=== PATIENT | male | born 1970 | race Caucasian/White ===

== ENCOUNTER 2017-09-03 07:26 | Emergency (ER) | payer OTHER ==
[2017-09-03 07:33] VITALS: BP 119/78; PULSE 109; TEMP 98.3; BMI 24.2
[2017-09-03] MEDS ORDERED: ACETAMINOPHEN 325 MG TABLET (FP) PO ONE (07:49)
[2017-09-03] MEDS ORDERED: predniSONE 20 MG TABLET (UD) PO ONE (07:49)
[2017-09-03] MEDS ORDERED: ACETAMINOPHEN 325 MG TABLET (FP) ONE (07:52)
[2017-09-03] MEDS ORDERED: ALBUTEROL SO4 2.5/IPRATROPIUM 0.5 INH SOL 3 ML VIAL.NEB. NEB ONE (07:52)
[2017-09-03] MEDS ORDERED: predniSONE 20 MG TABLET (UD) ONE (07:52)
--- NOTE | 2017-09-03 07:54 | PDOC ---
History of Present Illness - General Chief Complaint: Cold Symptoms Stated Complaint: cough,sob Time Seen by Provider: 09/03/17 07:29 History Source: Patient Exam Limitations: No Limitations - History of Present Illness Initial Comments: 46 yo M history asthma, recently treated with levaquin for bronchitis, states he has not been improving. 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 He states that he was not feeling well afterwards, and his asthma has been progressively worsening ever since. He saw his PMD, had a negative CXR, and was started on levaquin for bronchitis. He has been using his inhaler for cough and SOB without relief. No fever, chills. He c/o diffuse headache when he coughs. Past History - Past Medical History Allergies/Adverse Reactions: Allergies Allergy/AdvReac Type Severity Reaction Status Date / Time aspirin Allergy Verified 09/03/17 07:28 Penicillins Allergy Verified 07/02/14 15:45 Home Medications: Ambulatory Orders NK [No Known Home Medication] 09/03/17 Hypercholesterolemia: Yes - Suicide/Smoking/Psychosocial Hx Smoking History: Never smoked Hx Alcohol Use: No Drug/Substance Use Hx: No Substance Use Type: Alcohol Review of Systems - Review of Systems Able to Perform ROS?: Yes Comments:: GENERAL/CONSTITUTIONAL: No fever or chills. No weakness. HEAD, EYES, EARS, NOSE AND THROAT: No change in vision. No ear pain or discharge. No sore throat. CARDIOVASCULAR: No chest pain. +Shortness of breath. RESPIRATORY: +Cough. No wheezing or hemoptysis. GASTROINTESTINAL: No nausea, vomiting, diarrhea or constipation. GENITOURINARY: No dysuria, frequency, or change in urination. MUSCULOSKELETAL: No joint or muscle swelling or pain. No neck or back pain. SKIN: No rash NEUROLOGIC: No vertigo, loss of consciousness, or change in strength/sensation. +Headache. ENDOCRINE: No increased thirst. No abnormal weight change. HEMATOLOGIC/LYMPHATIC: No anemia, easy bleeding, or history of blood clots. ALLERGIC/IMMUNOLOGIC: No hives or skin allergy. *Physical Exam - Vital Signs Last Vital Signs Temp Pulse Resp BP Pulse Ox 98.3 F 109 H 20 119/78 96 09/03/17 07:27 09/03/17 07:27 09/03/17 07:27 09/03/17 07:27 09/03/17 07:27 - Physical Exam Comments: GENERAL: Awake, alert, and fully oriented, in no acute distress HEAD: No signs of trauma EYES: PERRLA, EOMI, sclera anicteric, conjunctiva clear ENT: Auricles normal inspection, hearing grossly normal, nares patent, oropharynx erythematous without exudates. Moist mucosa. TMs wnl B/L. NECK: Normal ROM, supple, no lymphadenopathy, JVD, or masses LUNGS: Mildly dec air entry B/L. Breath sounds equal, clear to auscultation. No wheezes, and no crackles HEART: Regular rate and rhythm, normal S1 and S2, no murmurs, rubs or gallops ABDOMEN: Soft, nontender, normoactive bowel sounds. No guarding, no rebound. No masses EXTREMITIES: Normal range of motion, no edema. No clubbing or cyanosis. No cords , erythema, or tenderness NEUROLOGICAL: Cranial nerves II through XII grossly intact. Normal speech, normal gait SKIN: Warm, Dry, normal turgor, no rashes or lesions noted. Medical Decision Making - Medical Decision Making 09/03/17 09:07 Cough has significantly improved. Patient reports improvement in symptoms. Stable for DC home. *DC/Admit/Observation/Transfer Diagnosis at time of Disposition: Viral upper respiratory infection Asthma with acute exacerbation Qualifiers: Asthma severity: unspecified severity Asthma persistence: unspecified Qualified Code(s): J45.901 - Unspecified asthma with (acute) exacerbation - Discharge Dispostion Disposition: HOME Condition at time of disposition: Improved Admit: No - Referrals Referrals: Evelin Horn [Primary Care Provider] -
[2017-09-03] MEDS: ALBUTEROL SO4 2.5/IPRATROPIUM 0.5 INH SOL 3 ML VIAL.NEB. NEB SCH ×3 (07:56→08:47)
== END 2017-09-03 09:15 | disposition home or self-care (01) ==
LOC: FER 07:26
PROC: 3E0F7GC Introduction of Other Therapeutic Substance into Respiratory Tract, Via Natural or Artificial Opening (ICD-10-PCS; principal; 2017-09-03)
DX: J06.9 Acute upper respiratory infection, unspecified (principal); J45.901 Unspecified asthma with (acute) exacerbation
CPT/HCPCS: 99281-25

== ENCOUNTER 2017-12-30 09:30 | Emergency (ER) | payer OTHER ==
[2017-12-30 09:44] VITALS: BP 140/80; PULSE 80; TEMP 98.3; BMI 22.8
--- NOTE | 2017-12-30 09:44 | PDOC ---
History of Present Illness - General Chief Complaint: Pain Stated Complaint: ABDOMINAL PAIN Time Seen by Provider: 12/30/17 09:38 History Source: Patient Exam Limitations: No Limitations - History of Present Illness Travel History: No Initial Comments: 12/30/17 09:40 47 y/o male with darren umbilical pain for 4 days, getting worse, seen in his PMD office, Dr. Horn, sent here for further evaluation. Denies fallor trauma.Started a new work out program this past weekend. Has not taken anything for the pain. Denies N/V/D, or blood in stool. No dysuria. Timing/Duration: reports: constant Quality: reports: mild Abdominal Pain Onset Location: reports: periumbilical Pain Radiation: reports: no radiation Activities at Onset: reports: none Past History - Past Medical History Allergies/Adverse Reactions: Allergies Allergy/AdvReac Type Severity Reaction Status Date / Time aspirin Allergy Verified 09/03/17 07:28 Home Medications: Ambulatory Orders NK [No Known Home Medication] 12/30/17 Hypercholesterolemia: Yes - Suicide/Smoking/Psychosocial Hx Smoking History: Never smoked Hx Alcohol Use: Yes Drug/Substance Use Hx: No Substance Use Type: Alcohol Review of Systems - Review of Systems Able to Perform ROS?: Yes Is the patient limited Turkish proficient: No Constitutional: No: Chills, Fever Respiratory: No: Cough, Shortness of Breath Cardiac (ROS): No: Chest Pain ABD/GI: No: Diarrhea, Nausea, Vomiting Musculoskeletal: No: Back Pain All Other Systems: Reviewed and Negative *Physical Exam - Physical Exam General Appearance: Yes: Nourished, Appropriately Dressed. No: Apparent Distress HEENT: positive: EOMI, DANE, Normal ENT Inspection, Normal Voice, Pharynx Normal. negative: Symmetrical, TMs Normal Neck: positive: Trachea midline, Normal Thyroid, Supple. negative: Tender, Rigid, Carotid bruit Respiratory/Chest: positive: Lungs Clear, Normal Breath Sounds. negative: Chest Tender, Respiratory Distress Cardiovascular: positive: Regular Rhythm, Regular Rate, S1, S2. negative: Edema , JVD, Murmur Vascular Pulses: Femoral (R): 4+, Femoral (L): 4+, Carotid (R): 4+, Carotid (L) : 4+, Dorsalis-Pedis (R): 4+, Doralis-Pedis (L): 4+ Gastrointestinal/Abdominal: positive: Normal Bowel Sounds, Tender (mid epi gastric tenderness and RUQ tenderness with darren umbilical tenderness, +BS, no hernia, no RLQ or LLQ tenderness, no pulsatile mass), Flat, Soft. negative: Organomegaly, Pulsatile Mass Lymphatic: negative: Adenopathy, Tenderness, Other Musculoskeletal: positive: Normal Inspection. 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 Pt is in agreement with plan. Pt is feeling better. CT abd/pelvis nromal Will discharge home Lipase still pending *DC/Admit/Observation/Transfer Diagnosis at time of Disposition: Abdominal pain Qualifiers: Abdominal location: periumbilical Qualified Code(s): R10.33 - Periumbilical pain - Discharge Dispostion Disposition: HOME Condition at time of disposition: Good Admit: No - Referrals Referrals: Evelin Horn [Primary Care Provider] - - Patient Instructions Printed Discharge Instructions: DI for Abdominal Pain-Adult Additional Instructions: Fluids, rest, Tylwnol If worsen in next 12- 24 hr return to ER Follow up with GI - Post Discharge Activity
[2017-12-30] MEDS ORDERED: SODIUM CHLORIDE 1,000 ML IV SCH (09:45)
[2017-12-30 10:16] LABS: URINE APPEARANCE Clear; URINE BILIRUBIN Negative (NEGATIVE); URINE BLOOD Negative (NEGATIVE); URINE GLUCOSE (UA) Negative (NEGATIVE); URINE KETONE Negative (NEGATIVE); URINE LEUK ESTERASE Negative (NEGATIVE); URINE NITRITE Negative (NEGATIVE); URINE PROTEIN Negative (NEGATIVE); URINE UROBILINOGEN 0.2 (0.2-1.0)
[2017-12-30 10:31] LABS: URINE COLOR YELLOW
[2017-12-30 10:50] LABS: BASO % 0.6 % (0-2.0); EOS % 2.9 % (0-4.5); HEMATOCRIT 47.2 % (35.4-49); HEMOGLOBIN 16.3 GM/dl (11.7-16.9); LYMPH % 30.1 % (8-40); MCHC 34.4 g/dl (32.0-35.9); MEAN PLT VOLUME 7.4 fl (7.5-11.1); MONO % 7.4 % (3.8-10.2); PLATELET COUNT 285 K/MM3 (134-434); RBC 4.92 M/mm3 (4.00-5.60); RDW 12.4 % (11.9-15.9); WHITE BLOOD COUNT 6.8 K/mm3 (4.0-10.8)
[2017-12-30 11:31] LABS: ALBUMIN 4.6 g/dl (3.5-5.0); ALK PHOS 36 U/L (32-92); ANION GAP 8 (8-16); BLOOD UREA NITROGEN 24 mg/dl (7-18); CALCIUM 9.3 mg/dl (8.4-10.2); CHLORIDE 103 mmol/L (98-107); CO2 25 mmol/L (22-28); CREATININE 0.8 mg/dl (0.6-1.3); GLUCOSE,RANDOM 88 mg/dl (74-106); POTASSIUM 4.2 mmol/L (3.5-5.1); SGOT/AST 23 U/L (10-42); SGPT/ALT 29 U/L (10-40); SODIUM 136 mmol/L (136-145); TOT PROT 7.5 g/dl (6.4-8.3)
[2017-12-30 11:45] LABS: BILIRUBIN,TOTAL 0.6 mg/dl (0.2-1.0)
[2017-12-30 14:48] LABS: LIPASE 138 U/L (73-393)
== END 2017-12-30 14:28 | disposition home or self-care (01) ==
LOC: FER 09:30
DX: R10.33 Periumbilical pain (principal)
CPT/HCPCS: 36415; 74177-TC; 80053; 81003; 83690; 85025; 99283-25

== ENCOUNTER 2020-11-22 13:36 | Emergency (ER) | payer OTHER ==
[2020-11-22] MEDS ORDERED: ONDANSETRON *ODT* 4 MG TABLET ONE (13:49)
[2020-11-22 13:51] VITALS: BP 141/97; PULSE 96; TEMP 98.8; BMI 24.2
[2020-11-22 14:58] LABS: BASO % 1.7 % (0-2.0); EOS % 2.3 % (0-4.5); HEMATOCRIT 43.8 % (35.4-49); HEMOGLOBIN 15.1 GM/dl (11.7-16.9); MCH 33.1 pg (25.7-33.7); MCHC 34.5 g/dl (32.0-35.9); MEAN CELL VOLUME 95.9 fl (80-96); MEAN PLT VOLUME 7.7 fl (7.5-11.1); MONO % 7.2 % (3.8-10.2); NEUT % 63.8 % (42.8-82.8); PLATELET COUNT 276 K/MM3 (134-434); RBC 4.57 M/mm3 (4.00-5.60); RDW 11.5 % (11.9-15.9); WHITE BLOOD COUNT 7.7 K/mm3 (4.0-10.8)
[2020-11-22 15:05] LABS: ALBUMIN 4.6 g/dl (3.4-5.0); BILIRUBIN,TOTAL 0.5 mg/dl (0.2-1); CALCIUM 9.5 mg/dl (8.5-10); CREATININE 0.9 mg/dl (0.55-1.3); TOT PROT 7.2 g/dl (6.4-8.2)
== END 2020-11-22 15:49 | disposition home or self-care (01) ==
LOC: FER 13:36
DX: R00.2 Palpitations (principal); R07.9 Chest pain, unspecified
CPT/HCPCS: 36415; 80053; 82550; 84484; 85025; 93005; 99284-25